=== PATIENT | male | born 1990 | race Asian ===

== ENCOUNTER 2023-04-02 08:53 | Inpatient (IN) | payer OTHER ==
[~2023-04-02] VITALS: Ht 175.3 cm; Wt 72.6 kg
[2023-04-02 09:02] VITALS: O2SAT 100
[2023-04-02] MEDS ORDERED: ASPIRIN 81MG TABLET PO ONE (09:15)
[2023-04-02 09:21] LABS: BASOPHILS % 0.7 % (0.0-2.0); EOSINOPHILS % 1.8 % (0.0-5.0); HEMATOCRIT. 43.4 % (42.0-52.0); HEMOGLOBIN. 14.8 g/dL (14.0-18.0); LYMPHOCYTES % 29.3 % (20.0-50.0); MEAN CORPUSCULAR HEMOGLOBIN 27.8 pg (28.0-32.0); MEAN CORPUSCULAR HGB CONC 34.2 g/dL (31.0-37.0); MEAN CORPUSCULAR VOLUME 81.1 fL (80.0-94.0); MONOCYTES % 5.2 % (2.0-8.0); PLATELET 236 x1000/uL (130-400); RED BLOOD CELL COUNT 5.35 mill/uL (4.7-6.1); RED CELL DISTRIBUTION WIDTH 13.2 % (11.6-14.6); WHITE BLOOD COUNT 9.7 x1000/uL (4.5-11.0)
[2023-04-02 09:28] LABS: CHLORIDE 105 mEq/L (98-107); INDEX HEMOLYSI 1 (1-3); INDEX ICTERIC 1 (1-4); INDEX LIPEMIC 1 (1-3); POTASSIUM 3.5 mEq/L (3.5-5.1); SODIUM 139 mEq/L (136-145)
[2023-04-02 09:36] LABS: ALANINE AMINOTRANSFERASE 49 IU/L (13-61); ALBUMIN 4.6 g/dL (3.4-5.0); ASPARTATE AMINOTRANSFERASE 19 IU/L (15-37); BILIRUBIN TOTAL 0.5 mg/dL (0.1-1.0); CALCIUM 9.2 mg/dL (8.5-10.1); CARBON DIOXIDE 26 mEq/L (21-32); CREATININE 0.9 mg/dL (0.6-1.3); GLUCOSE 110 mg/dL (70-105); PROTEIN TOTAL 8.4 g/dL (6.0-8.3); UREA NITROGEN BLOOD 15 mg/dL (7-21)
[2023-04-02 10:12] LABS: NT PRO B-TYPE NATRIURETIC PEP 8 pg/mL (5-125)
[2023-04-02] MEDS ORDERED: KETOROLAC 15MG/ML VIAL IV ONE (10:15)
[2023-04-02 10:23] LABS: TROPONIN I HIGH SENSITIVITY < 4 ng/L (<78)
[2023-04-02 13:07] LABS: TROPONIN I HIGH SENSITIVITY < 4 ng/L (<78)
[2023-04-02 13:37] VITALS: BP 131/84; PULSE 90; RESP 14; TEMP 98.1
[2023-04-02] MEDS ORDERED: CLONIDINE 0.1MG TABLET PO PRN (15:30)
[2023-04-02] MEDS ORDERED: TRAMADOL 50MG TABLET PO PRN (15:30)
[2023-04-02] MEDS ORDERED: IPRATROPIUM/ALBUTEROL 0.5-3(2.5)MG/3ML NEB HHN PRN (15:30)
[2023-04-02] MEDS ORDERED: ENOXAPARIN 40MG/0.4ML SYR SUBCUT SCH (15:30)
[2023-04-02] MEDS ORDERED: ACETAMINOPHEN 325MG TABLET PO PRN ×2 (15:30)
[2023-04-02] MEDS ORDERED: GUAIFENESIN 200MG/10ML SUGAR FREE UDC PO PRN (15:30)
[2023-04-02] MEDS ORDERED: ONDANSETRON HCL 4MG/2ML INJ IV PRN (15:30)
[2023-04-02] MEDS ORDERED: MAGNESIUM/ALUMINUM HYDROXIDE/SIMETHICONE 30ML UDC PO PRN (15:30)
[2023-04-02 15:53] VITALS: BP 120/83; PULSE 79; RESP 20; TEMP 97.6
[2023-04-02 18:03] VITALS: BP 120/83; PULSE 79; RESP 20; TEMP 97.6
[2023-04-02] MEDS ORDERED: NAPR-681 MT (18:03)
[2023-04-02] MEDS ORDERED: NALOXONE HCL 0.4MG/ML VIAL IV PRN (20:00)
[2023-04-02 20:52] VITALS: BP 138/93; PULSE 65; RESP 20; TEMP 97.6
[2023-04-02 23:17] LABS: PHOSPHORUS 2.8 mg/dL (2.5-4.9)
[2023-04-03] MEDS ORDERED: ASPIRIN 81MG EC TABLET PO SCH (09:00)
== END 2023-04-02 20:50 | disposition home or self-care (01) | DRG 316 ==
LOC: ER 09:29 → 7WST 12:04 → EDBEDREQTM 12:09 → EDBEDREQ 12:09 → SUPCPDRO 12:20
PROVIDERS: ADMIT Internal Medicine; ATTEND Internal Medicine
DX: I30.9 Acute pericarditis, unspecified (principal); E78.5 Hyperlipidemia, unspecified; F17.200 Nicotine dependence, unspecified, uncomplicated; Z82.49 Family history of ischemic heart disease and other diseases of the circulatory system; Z83.3 Family history of diabetes mellitus
CPT/HCPCS: 36415; 71045; 80053; 83735; 83880; 84100; 84484; 85025; 85379; 93005; 99285; J1650; J1885